=== PATIENT | male | born 1975 | race African-American/Black ===

== ENCOUNTER 2018-03-26 18:35 | Emergency (ER) | payer OTHER ==
[~2018-03-26] VITALS: Ht 177.8 cm; Wt 90.0 kg
[2018-03-26 18:55] VITALS: BP 146/90
[2018-03-26] MEDS ORDERED: TETANUS, DIPHTHERIA, PERTUSSIS VAC/PF 0.5ML (>7YR OLD) IM ONE (19:15)
[2018-03-26] MEDS ORDERED: LIDOCAINE HCL/PF 1% 10 MG/ML 5ML VIAL IJ ONE (19:15)
[2018-03-26] MEDS ORDERED: IBUPROFEN 800MG TABLET PO ONE (21:00)
== END 2018-03-26 21:04 | disposition home or self-care (01) ==
LOC: ER 18:35
DX: S01.511A Laceration without foreign body of lip, initial encounter (principal); Y08.89XA Assault by other specified means, initial encounter; Y93.89 Activity, other specified; Y92.89 Other specified places as the place of occurrence of the external cause; Y99.8 Other external cause status
CPT/HCPCS: 12011; 90471; 90715; 99283; J3490

== ENCOUNTER 2019-04-25 16:53 | Emergency (ER) | payer OTHER ==
[~2019-04-25] VITALS: Ht 180.3 cm; Wt 82.0 kg
[2019-04-25 19:25] VITALS: BP 139/88
== END 2019-04-25 21:37 | disposition left against medical advice (07) ==
LOC: ER 16:53
DX: R07.89 Other chest pain (principal); Z53.21 Procedure and treatment not carried out due to patient leaving prior to being seen by health care provider
CPT/HCPCS: 93005